=== PATIENT | male | born 1980 | race Caucasian/White ===

== ENCOUNTER 2019-04-20 09:39 | Emergency (ER) | payer BC ==
[~2019-04-20] VITALS: Ht 167.6 cm; Wt 73.0 kg
[2019-04-20 09:56] VITALS: BP 156/95; Ht 167.6 cm; Wt 73.0 kg
== END 2019-04-20 10:40 | disposition home or self-care (01) ==
LOC: ED 09:39
DX: B34.9 Viral infection, unspecified (principal); I10 Essential (primary) hypertension